=== PATIENT | male | born 1960 | race Caucasian/White ===

== ENCOUNTER → 2018-05-01 | Outpatient (CLI) | payer OTHER ==
[~2018-05-01] MED LIST: ACAI; ALBUTEROL0.09 MG/A1 IH; AMITRIPTYLINE25 MG PO; ASPI81EC86; ASPIR-LOW81 MG PO; CALCIUM CARBON500 M1 PO; CALCIUM1 CAP PO; ELITE MAGNESIUM1 TAB PO; FISH OIL CONC1000 MG PO; FISH OIL500 MG PO; MULTIPLE VITAMI1 CAP PO; MVI; NEXIUM 40MG40 MG PO; POTASSIUM CHLO10 ME2 PO; POTASSIUM20 MEQ PO; TRAMADOL; TYLENOL 325MG325 MG PO; VITAMIN B COMPL1 TA1 PO; VITAMIN C BUFF500 MG PO; VITAMIN D5000 IU PO; VITAMIN E28000 IU TP; ZINC10 M1 PO; [UNRECOGNIZED DRUG - OTHER]
== END ==
LOC: COL.RAD 10:06
DX: M75.101 Unspecified rotator cuff tear or rupture of right shoulder, not specified as traumatic (principal); S46.811A Strain of other muscles, fascia and tendons at shoulder and upper arm level, right arm, initial encounter; S46.211A Strain of muscle, fascia and tendon of other parts of biceps, right arm, initial encounter; M66.821 Spontaneous rupture of other tendons, right upper arm

== ENCOUNTER 2018-05-02 08:20 | Outpatient (RCR) | payer OTHER | END 2018-05-05 10:26 | disposition home or self-care (01) | LOC: WSOH 08:20 | DX: M66.821 Spontaneous rupture of other tendons, right upper arm (principal); X50.0XXA Overexertion from strenuous movement or load, initial encounter; Y99.0 Civilian activity done for income or pay; Z79.899 Other long term (current) drug therapy ==

== ENCOUNTER → 2018-11-24 | Outpatient (RCR) | payer OTHER | END | disposition home or self-care (01) | LOC: WSPT → MKS.ESL.PT 08-26 13:11 → WSPT 08-28 14:00 → MKS.ESL.PT 09-11 11:00 → WSPT 09-16 14:15 → MKS.ESL.PT 09-18 13:15 → WSPT 09-25 14:15 → MKS.ESL.PT 10-07 14:15 → WSPT 10-09 14:15 | DX: S46.011D Strain of muscle(s) and tendon(s) of the rotator cuff of right shoulder, subsequent encounter (principal); M75.41 Impingement syndrome of right shoulder ==

== ENCOUNTER 2018-12-03 14:45 | Outpatient (RCR) | payer OTHER | END 2018-12-22 09:43 | disposition home or self-care (01) | LOC: WSPT 14:45 | DX: S46.011D Strain of muscle(s) and tendon(s) of the rotator cuff of right shoulder, subsequent encounter (principal); S46.111D Strain of muscle, fascia and tendon of long head of biceps, right arm, subsequent encounter; M75.41 Impingement syndrome of right shoulder ==

== ENCOUNTER 2019-01-15 11:15 | Outpatient (RCR) | payer OTHER | END 2019-03-15 | disposition home or self-care (01) | LOC: WSPT | DX: Z02.89 Encounter for other administrative examinations (principal) ==